=== PATIENT | male | born 1965 | race Caucasian/White ===

== ENCOUNTER 2018-03-14 08:56 | Emergency (ER) | payer OTHER ==
[~2018-03-14] VITALS: Ht 177.8 cm; Wt 118.2 kg
[2018-03-14 09:03] VITALS: Ht 177.8 cm; Wt 118.2 kg
[2018-03-14] MEDS ORDERED: PRISTIQ50 MG PO (09:04)
[2018-03-14] MEDS ORDERED: VITAMIN B-121000 MCG PO (09:05)
[2018-03-14] MEDS ORDERED: SLEEPING PILL (09:05)
[2018-03-14] MEDS ORDERED: ACID REFLUX MED (09:05)
[2018-03-14] MEDS ORDERED: CPAP (09:05)
[2018-03-14] MEDS ORDERED: BACLOFEN10 MG PO (09:06)
[2018-03-14] MEDS ORDERED: NORCO 7.5/325 T1 TA1 PO ×2 (09:06→13:25)
[2018-03-14 09:48] LABS: BASOPHILS 0.2 % (0-2); EOSINOPHILS 2.7 % (0-7); IMMATURE GRANULOCYTES 0.2 % (0-5); MCH 29.3 pg (26.0-34.0); MCHC 32.6 g/dL (31.0-37.0); MONOCYTES 10.6 % (2-11); NEUTROPHILS 57.3 % (40-80); PLATELET COUNT 188 10x3/uL (130-400); RBC 4.78 10x6/uL (4.20-6.10); WBC 4.9 10x3/uL (4.8-10.8)
[2018-03-14 10:24] LABS: ALBUMIN 3.3 g/dL (3.4-5.0); ALKALINE PHOSPHATASE 85 U/L (46-116); ALT (SGPT) 35 U/L (10-68); AMYLASE - SERUM 44 U/L (25-115); BILIRUBIN - TOTAL 0.25 mg/dL (0.2-1.3); CALC OSMOLALITY 277 mosm/kg (275-300); CALCIUM 8.3 mg/dL (8.5-10.1); CARBON DIOXIDE 28.9 mmol/L (21.0-32.0); CHLORIDE - SERUM 102 mmol/L (98-107); GLUCOSE 148 mg/dL (74-106); LIPASE 121 U/L (73-393); POTASSIUM - SERUM 3.8 mmol/L (3.5-5.1); PROTEIN - SERUM 6.4 g/dL (6.4-8.2); SODIUM 138 mmol/L (136-145); UREA NITROGEN 11 mg/dL (7-18); eGFR NON AFRICAN AMERICAN 84 mL/min (90-120)
[2018-03-14 12:25] LABS: APPEARANCE CLEAR (CLEAR); BACTERIA FEW /hpf (NONE SEEN); BILIRUBIN NEGATIVE (NEGATIVE); COLOR YELLOW (YELLOW); EPITHELIAL CELLS 0-5 /hpf (0-5); GLUCOSE NEGATIVE (NEGATIVE); KETONE NEGATIVE (NEGATIVE); MUCUS >1+ /lpf (NONE SEEN); NITRITE NEGATIVE (NEGATIVE); PROTEIN NEGATIVE (NEGATIVE); UROBILINOGEN NORMAL (NORMAL); WHITE CELLS - URINE 0-5 /hpf (0-5)
[2018-03-14 12:26] LABS: HYALINE CAST RARE /lpf (NONE SEEN)
[2018-03-14] MEDS ORDERED: STERAPRED DS 1010 MG PO (13:25)
[2018-03-14] MEDS ORDERED: TORADOL10 MG PO (13:29)
[2018-03-14 14:21] VITALS: BP 109/76
== END 2018-03-14 14:21 | disposition home or self-care (01) ==
LOC: D.ER 08:56
PROVIDERS: Family Medicine
DX: N20.1 Calculus of ureter (principal); M51.36 Other intervertebral disc degeneration, lumbar region; K21.9 Gastro-esophageal reflux disease without esophagitis

== ENCOUNTER 2019-04-24 11:58 | Emergency (ER) | payer OTHER ==
[~2019-04-24] VITALS: Ht 177.8 cm; Wt 118.2 kg
[~2019-04-24 11:58] MED LIST: ACID REFLUX MED; BACLOFEN10 MG PO; CPAP; NORCO 7.5/325 T1 TA1 PO; PRISTIQ50 MG PO; SLEEPING PILL; STERAPRED DS 1010 MG PO; TORADOL10 MG PO; VITAMIN B-121000 MCG PO
[2019-04-24 12:02] VITALS: Ht 177.8 cm; Wt 118.2 kg
[2019-04-24] MEDS ORDERED: BLOOD PRESSURE (12:07)
[2019-04-24 12:47] LABS: APPEARANCE CLEAR (CLEAR); BILIRUBIN NEGATIVE (NEGATIVE); COLOR YELLOW (YELLOW); GLUCOSE NEGATIVE (NEGATIVE); KETONE NEGATIVE (NEGATIVE); NITRITE NEGATIVE (NEGATIVE); PROTEIN NEGATIVE (NEGATIVE); UROBILINOGEN NORMAL (NORMAL)
[2019-04-24 14:22] VITALS: BP 134/100
== END 2019-04-24 14:23 | disposition home or self-care (01) ==
LOC: D.ER 11:58
PROVIDERS: Family Medicine
DX: M54.5 Low back pain (principal)